=== PATIENT | female | born 1960 | race Caucasian/White ===

== ENCOUNTER 2022-02-20 12:00 | Day surgery (SDC) | payer BC ==
[2022-02-17 13:49] LABS: Absolute Lymphocytes (CBC) 2.7 K/uL (0.7-4.9); Hematocrit 39.4 % (36.0-45.0); Lymphocytes % 42.4 % (15.3-44.8); MCV 100.9 fL (80-100); MPV 8.6 fL (7.6-11.3); RBC Red Blood Cell Count 3.91 M/uL (3.86-4.86)
[2022-02-17 13:59] LABS: Potassium 3.8 mmol/L (3.5-5.1)
--- NOTE | 2022-02-17 14:14 | RAD REPORT ---
EXAM DESCRIPTION: Terrence Burrell And Archie (2 Views)02/17/2022 1:48 pm CLINICAL HISTORY: Preop for abdominal aortogram COMPARISON: None FINDINGS: The lungs appear clear of acute infiltrate. The heart is normal size IMPRESSION: No acute abnormalities displayed
[2022-02-17 14:33] LABS: Protime INR 0.78
--- NOTE | 2022-02-18 13:59 | EKG ---
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
[2022-02-20] MEDS ORDERED: NA CHLORIDE 0.9% 500 ML ONE (12:25)
[2022-02-20] MEDS ORDERED: HEPA 1000U/500MLS 2,000 UNIT/1,000 ML BAG IV ONE (14:23)
[2022-02-20] MEDS ORDERED: LIDOCAINE 1% 20 ML MDV ONE (14:23)
[2022-02-20] MEDS ORDERED: MIDAZOLAM HCL 2 MG/2 ML INJ ONE ×2 (14:25→14:36)
[2022-02-20] MEDS ORDERED: FENTANYL CITR 100 MCG/2 ML ONE (14:25)
[2022-02-20] MEDS ORDERED: ATROPINE SULF 1 MG/10 ML SYR IV ONE (14:26)
--- NOTE | 2022-02-20 16:20 | OP ---
Date of Procedure: 02/20/2022 Surgeon: DOLORES KWAN Procedures Performed: 1.Bilateral selective carotid angiogram. 2.Peripheral angiogram. Indications: 1.A carotid stenosis by Doppler. 2.Significant pain in lower extremities, questionable peripheral vascular disease. Access: Right femoral artery 4-Nigerien closed with manual pressure. Complications: None. Bleeding: Less than 10 mL. Anesthesia: Total sedation time was 30 minutes, used fentanyl and Versed. Description Of Procedure: After risks, benefits, alternatives were explained, the patient agreed to the procedure and signed informed consent. The patient was brought into the cardiac catheterization laboratory, prepped and draped in the usual sterile fashion. Then, I accessed the right femoral jimenez ry using micropuncture kit, ultrasound guidance and fluoroscopy, and placed a 4-Nigerien [place] sheat h and took 4-Nigerien 3DRC catheter into the aortic root, engaged the right common carotid artery, took standard views and then engaged the left common carotid arteries, took standard views and then excha nged for a straight pigtail and placed in the distal aorta, performed this aortogram with runoff all the way to the feet and then removed the catheter and sheath. Manual pressure was used with good hem ostasis. Findings: 1.The right common carotid artery is normal and the right external carotid artery is normal. Her ri ght internal carotid artery has had proximal 20% stenosis. 2.The left common carotid artery is normal, the left internal carotid artery has a proximal 60% sten osis and the left external carotid artery is normal. Peripheral Angiogram: 1.Distal aorta is patent and normal. 2.Bilateral common iliacs, internal iliacs, and common femoral arteries are normal. 3.Bilateral SFAs and profunda are both normal, no disease. 4.Bilateral triple-vessel by the knee are patent all the way to the toes with no significant disease . Conclusion: 1.Moderate right internal carotid artery stenosis. 2.No peripheral vascular disease. Plan: Medical management. SR/MODL Voice ID: [id number] Report ID: [id number]
[2022-02-20 16:31] VITALS: O2SAT 94
[2022-02-20 16:32] VITALS: BP 110/58
== END 2022-02-20 15:05 | disposition home or self-care (01) ==
LOC: PRE 12:00
PROVIDERS: ATTEND Internal Medicine
DX: I65.23 Occlusion and stenosis of bilateral carotid arteries (principal); M79.605 Pain in left leg; M79.604 Pain in right leg; E78.5 Hyperlipidemia, unspecified; E11.9 Type 2 diabetes mellitus without complications; F17.210 Nicotine dependence, cigarettes, uncomplicated; Z79.899 Other long term (current) drug therapy; Z88.2 Allergy status to sulfonamides; Z82.49 Family history of ischemic heart disease and other diseases of the circulatory system
CPT/HCPCS: 93005; 85025; 80048; 36415; 85610; 85730; 71046; 75630; 36222; 76937; C1893; J2250; J3010; J7040; J1644